=== PATIENT | female | born 1980 | race Caucasian/White ===

== ENCOUNTER 2016-10-20 18:45 | Emergency (ER) | payer OTHER ==
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
[2016-10-20 20:09] VITALS: TEMP 98.4; BMI 37.7
[2016-10-20] MEDS ORDERED: DIAZEPAM 5 MG TAB PO ONE (21:14)
[2016-10-20] MEDS ORDERED: OXYCODONE HCL 5 MG TABLET PO ONE (21:14)
[2016-10-20] MEDS ORDERED: PREDNISONE 20 MG TAB PO ONE (21:14)
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
[2016-10-20 22:01] VITALS: BP 128/73; PULSE 87
== END 2016-10-20 21:57 | disposition home or self-care (01) ==
LOC: ED 18:45 → EDMC 21:57
DX: S13.9XXA Sprain of joints and ligaments of unspecified parts of neck, initial encounter (principal); V49.40XA Driver injured in collision with unspecified motor vehicles in traffic accident, initial encounter; Y93.9 Activity, unspecified; Y92.410 Unspecified street and highway as the place of occurrence of the external cause
CPT/HCPCS: 72050; 99283; J3490

== ENCOUNTER 2016-10-25 17:24 | Emergency (ER) | payer OTHER ==
[2016-10-25 17:30] VITALS: BP 158/90; PULSE 114; TEMP 98.2; BMI 38.7
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
== END 2016-10-25 17:46 | disposition home or self-care (01) ==
LOC: EDMC 17:24
DX: M54.16 Radiculopathy, lumbar region (principal)
CPT/HCPCS: 99282